=== PATIENT | male | born 1985 | race Caucasian/White ===

== ENCOUNTER 2019-04-07 09:15 | Outpatient (CLI) | payer OTHER ==
[2019-04-08 10:33] LABS: HEPATITIS B SURFACE ANTIGEN NON-REACTIVE (NON-REACTIVE)
[2019-04-14 10:46] LABS: HEPATITIS C ANTIBODY Non-Reactive
== END 2019-04-07 23:59 | disposition home or self-care (01) ==
LOC: LAB.WCP 09:15
PROVIDERS: ATTEND Physician Assistant
DX: R94.5 Abnormal results of liver function studies (principal)
CPT/HCPCS: 36415; 86704; 86709; 86803; 87340

== ENCOUNTER 2020-05-04 09:55 | Outpatient (CLI) | payer BC, OTHER ==
--- NOTE | 2020-05-04 11:12 | XRAY Report ---
PROCEDURE: Shoulder 3 View RT INDICATIONS: RIGHT SHOULDER INJ TECHNIQUE: 3 views of the shoulder were acquired. COMPARISON: None. FINDINGS: Bones: No fractures or dislocations. No suspicious bony lesions. Visualized ribs appear intact. Soft tissues: No suspicious soft tissue calcifications. The visualized lung demonstrates a normal a ppearance. IMPRESSION: Normal shoulder plain films. If it would be helpful for clinical management decision making, please consider a dedicated shoulder MRI for further evaluation (assuming that there is no contraindication). If there is strong clinical concern for labral pathology, then please consider performing this according to the arthrogram protoc ol. Reviewed by: Tre Tamayo MD on 05/04/2020 10:11 AM [facility] Approved by: Tre Tamayo MD on 05/04/2020 10:11 AM [facility] Station ID: [id number]
== END 2020-05-04 23:59 | disposition home or self-care (01) ==
LOC: DI.N 09:55
PROVIDERS: ATTEND Nurse Practitioner
DX: S46.011A Strain of muscle(s) and tendon(s) of the rotator cuff of right shoulder, initial encounter (principal)